=== PATIENT | male | born 1990 | race Caucasian/White ===

== ENCOUNTER 2017-03-13 22:31 | Emergency (ER) | payer OTHER ==
[2017-03-13 22:48] VITALS: TEMP 98.7
[2017-03-13] MEDS ORDERED: CEPHALEXIN 250 MG/5 ML BOTTLE PO ONE (23:05)
[2017-03-13] MEDS ORDERED: CEPHALEXIN 250 MG/5 ML BOTTLE ONE (23:17)
[2017-03-13 23:43] LABS: CALCIUM 9.1 mg/dl (8.5-10.1); POTASSIUM 3.8 mMol/L (3.5-5.1)
[2017-03-13 23:44] LABS: BASOPHILS % (AUTO) 1 % (0-3); EOSINOPHILS % (AUTO) 7 % (0-9); HEMATOCRIT 43 % (39-53); MEAN CORPUSCULAR HGB CONC 35.5 gm/dl (32.0-36.0); MEAN CORPUSCULAR VOLUME 86 fL (80-100); MONOCYTES % (AUTO) 9.3 % (0-12)
[2017-03-14] MEDS ORDERED: TDAP VACCINE 0.5 ML SUS IM ONE ×2 (00:07→00:09)
[2017-03-14 02:15] VITALS: BP 132/72; PULSE 88; RESP 18; O2SAT 99
== END 2017-03-14 00:53 | disposition home or self-care (01) | DRG 603 ==
LOC: ED 22:31
DX: L03.115 Cellulitis of right lower limb (principal)
CPT/HCPCS: 36415; 80048; 85025; 87040; 90471; 90715; 99283; 99284